=== PATIENT | female | born 1945 | race Caucasian/White ===

== ENCOUNTER 2018-10-28 10:10 | Outpatient (CLI) | payer MEDICARE ==
--- NOTE | 2018-10-28 10:57 | MMO ---
Bilateral MAMMO Bilat Screen [facility]. CLINICAL HISTORY: Patient is 73 years old and is seen for screening. The patient has the following family history of breast cancer: maternal aunt. The patient has a history of bilateral Mastectomy in 1989 - Partial mastectomy. No cancer and bilateral Implants in 1990. VIEWS: The views performed were: bilateral craniocaudal; bilateral mediolateral oblique; and bilateral Implant displaced with tomosynthesis. FILMS COMPARED: The present examination has been compared to prior imaging studies performed at [facility] on 10/15/2001, 09/22/2003, 11/21/2004, 08/22/2011 and 02/01/2016. MAMMOGRAM FINDINGS: There are scattered fibroglandular densities. There are stable benign appearing calcifications seen in both breasts. There are no suspicious masses, suspicious calcifications, or new areas of architectural distortion. IMPRESSION: THERE IS NO MAMMOGRAPHIC EVIDENCE OF MALIGNANCY. A ROUTINE FOLLOW-UP MAMMOGRAM IN 1 YEAR IS RECOMMENDED. THE RESULTS OF THIS EXAM WERE SENT TO THE PATIENT. ACR BI-RADS Category 2 - Benign finding MAMMOGRAPHY NOTE: 1. A negative mammogram report should not delay a biopsy if a dominant of clinically suspicious mass is present. 2. Approximately 10% to 15% of breast cancers are not detected by mammography. 3. Adenosis and dense breasts may obscure an underlying neoplasm.
== END 2018-10-28 10:11 | disposition home or self-care (01) ==
LOC: BICMAMMO 10:10
PROVIDERS: ATTEND Obstetrics & Gynecology
DX: Z12.31 Encounter for screening mammogram for malignant neoplasm of breast (principal); Z90.13 Acquired absence of bilateral breasts and nipples; Z80.3 Family history of malignant neoplasm of breast
CPT/HCPCS: 77063; 77067

== ENCOUNTER 2020-02-19 13:48 | Outpatient (CLI) | payer MEDICARE ==
--- NOTE | 2020-02-19 14:42 | BD ---
BONE DENSITOMETRY USING DEXA: Date: 02/19/2020 HISTORY: Postmenopausal screening for osteoporosis. FINDINGS: Lumbar Spine: BMD (g/cm2) L1 0.747 T-Score: -2.2 Z-Score: -0.1 L2 0.762 T-Score: -2.4 Z-Score: -0.1 L3 0.951 T-Score: -1.2 Z-Score: 1.3 L4 0.971 T-Score: -0.8 Z-Score: 1.7 L1-L4 0.866 T-Score: -1.6 Z-Score: 0.7 Femoral Neck: 0.539 T-Score: -2.8 Z-Score: -0.7 Total Femur: 0.667 T-Score: -2.3 Z-Score: -0.5 There has been interval improvement of 9.4% in the bone mineral density of the lumbar spine and impro vement of 8.8% in the bone mineral density of the proximal femur since 10/01/2006. IMPRESSION: Osteoporosis. POS: OFF
== END 2020-02-19 13:49 | disposition home or self-care (01) ==
LOC: BICMAMMO 13:48
PROVIDERS: ATTEND Obstetrics & Gynecology
DX: Z13.820 Encounter for screening for osteoporosis (principal); M81.0 Age-related osteoporosis without current pathological fracture
CPT/HCPCS: 77080

== ENCOUNTER 2021-05-05 09:27 | Outpatient (CLI) | payer MEDICARE | END 2021-05-05 09:28 | disposition home or self-care (01) | LOC: BICMAMMO 09:27 | PROVIDERS: ATTEND Obstetrics & Gynecology | DX: Z12.31 Encounter for screening mammogram for malignant neoplasm of breast (principal); Z98.82 Breast implant status; Z90.11 Acquired absence of right breast and nipple; Z90.12 Acquired absence of left breast and nipple | CPT/HCPCS: 77063; 77067 ==